=== PATIENT | female | born 1985 | race Caucasian/White ===

== ENCOUNTER → 2017-10-04 | Outpatient (CLI) | payer OTHER ==
[~2017-10-04] MED LIST: FLEXERIL; HYDROCODONE-AP1 EAC6 PO; IBUPROFEN 800800 M1 PO; PERCOCET PO; XANAX1 MG PO; ZOFRAN4 MG PO
== END ==
LOC: M.RAD 10:45
DX: M25.511 Pain in right shoulder (principal)

== ENCOUNTER → 2017-11-15 | Outpatient (CLI) | payer OTHER | LOC: M.MRI 11:06 | DX: M75.51 Bursitis of right shoulder (principal) ==

== ENCOUNTER 2017-12-29 13:45 | Emergency (ER) | payer OTHER ==
[~2017-12-29] VITALS: Ht 157.5 cm; Wt 74.4 kg
[~2017-12-29 13:45] MED LIST changes: -IBUPROFEN 800800 M1 PO; -PERCOCET PO; -XANAX1 MG PO; -ZOFRAN4 MG PO
[2017-12-29] MEDS ORDERED: IBUPROFEN 800800 M1 PO (14:07)
[2017-12-29] MEDS ORDERED: PERCOCET PO (14:07)
[2017-12-29] MEDS ORDERED: XANAX1 MG PO (14:07)
[2017-12-29] MEDS ORDERED: ZOFRAN4 MG PO (14:47)
[2017-12-29 14:49] VITALS: BP 111/65
== END 2017-12-29 14:51 | disposition home or self-care (01) ==
LOC: M.ERS 13:45
DX: G89.18 Other acute postprocedural pain (principal); M25.511 Pain in right shoulder; G43.909 Migraine, unspecified, not intractable, without status migrainosus; M19.90 Unspecified osteoarthritis, unspecified site; G89.29 Other chronic pain; F17.210 Nicotine dependence, cigarettes, uncomplicated; Z88.0 Allergy status to penicillin

== ENCOUNTER → 2018-08-05 | Outpatient (CLI) | payer OTHER ==
[~2018-08-05] MED LIST changes: +IBUPROFEN 800800 M1 PO; +PERCOCET PO; +XANAX1 MG PO; +ZOFRAN4 MG PO
== END ==
LOC: M.ULTRA 08:42
DX: K76.0 Fatty (change of) liver, not elsewhere classified (principal)

== ENCOUNTER → 2018-09-23 | Outpatient (CLI) | payer OTHER | LOC: M.RAD 16:06 | DX: R91.8 Other nonspecific abnormal finding of lung field (principal) ==